=== PATIENT | female | born 1935 | race Caucasian/White ===

== ENCOUNTER → 2018-12-25 | Outpatient (CLI) | payer MEDICARE ==
[~2018-12-25] MED LIST: ASPI-1197 PO; BIOT10005 PO; CALC-877 PO; CHOL50004 PO; LEVO112T7 PO; MULT-1192 PO; PREG75 PO; RALO60TA13 PO; SIMV10TA6 PO
== END | disposition home or self-care (01) ==
LOC: RAH 12:30
PROVIDERS: ATTEND Family Medicine
DX: R07.81 Pleurodynia (principal)
CPT/HCPCS: 71100

== ENCOUNTER → 2019-06-27 | Outpatient (CLI) | payer MEDICARE ==
[~2019-06-27] MED LIST changes: -SIMV10TA6 PO; +SIMV10TA97 PO
== END | disposition home or self-care (01) ==
LOC: RAH 09:49
PROVIDERS: ATTEND Family Medicine
DX: R05 Cough (principal)
CPT/HCPCS: 71046

== ENCOUNTER → 2019-07-05 | Outpatient (CLI) | payer OTHER | END | disposition home or self-care (01) | LOC: RAH 09:44 | PROVIDERS: ATTEND Family Medicine | DX: Z13.6 Encounter for screening for cardiovascular disorders (principal) | CPT/HCPCS: 75571 ==

== ENCOUNTER → 2019-12-05 | Outpatient (CLI) | payer MEDICARE ==
[2019-12-05 12:10] LABS: BASOPHILS % (AUTO) 0.8 % (0.0-5.0); EOSINOPHILS % (AUTO) 1.7 % (0.0-8.0); HEMATOCRIT 44.1 % (36-48); MEAN CORPUSCULAR HGB CONC 32.2 g/dL (32.0-36.0); MONOCYTES % (AUTO) 9.2 % (3.0-13.0); NEUTROPHILS % (AUTO) 65.5 % (40.0-77.0); PLATELET COUNT (AUTO) 264 K/uL (130-400); RED CELL DISTRIBUTION WIDTH 13.4 % (11.0-15.5); WHITE BLOOD COUNT (AUTO) 6.6 K/uL (4.8-10.8)
[2019-12-05 12:38] LABS: ALBUMIN 3.6 g/dL (3.5-5.0); BILIRUBIN,TOTAL 0.5 mg/dL (0.2-1.0); CREATININE 0.8 mg/dL (0.5-1.5); POTASSIUM 4.3 mmol/L (3.5-5.1); THYROID STIMULATING HORMONE 4.39 uIU/mL (0.36-3.74); TOTAL PROTEIN, SERUM 8.1 g/dL (6.0-8.3); URIC ACID 3.5 mg/dL (2.6-7.2)
== END | disposition home or self-care (01) ==
LOC: LAB 10:55
PROVIDERS: ATTEND Internal Medicine Critical Care Medicine
DX: J47.9 Bronchiectasis, uncomplicated (principal); I63.9 Cerebral infarction, unspecified; E03.9 Hypothyroidism, unspecified; R53.83 Other fatigue; R79.9 Abnormal finding of blood chemistry, unspecified
CPT/HCPCS: 36415; 80053; 82728; 84443; 84550; 85025; 86038; 86200; 86215; 86235; 86431; 86618

== ENCOUNTER → 2019-12-17 | Outpatient (CLI) | payer MEDICARE | END | disposition home or self-care (01) | LOC: RAH 12:33 | PROVIDERS: ATTEND Family Medicine | DX: R59.0 Localized enlarged lymph nodes (principal) | CPT/HCPCS: 76882 ==

== ENCOUNTER → 2019-12-25 | Outpatient (CLI) | payer MEDICARE ==
[~2019-12-25] MED LIST changes: +GADODIAMIDE 10 MMOL/20 ML VIAL IV ONE
== END | disposition home or self-care (01) ==
LOC: RAH 10:39
PROVIDERS: ATTEND Internal Medicine Critical Care Medicine
DX: I67.82 Cerebral ischemia (principal); G31.89 Other specified degenerative diseases of nervous system; I63.9 Cerebral infarction, unspecified
CPT/HCPCS: 36415; 70553; A9579

== ENCOUNTER → 2021-05-20 | Outpatient (CLI) | payer MEDICARE ==
[~2021-05-20] MED LIST changes: -GADODIAMIDE 10 MMOL/20 ML VIAL IV ONE
== END | disposition home or self-care (01) ==
LOC: RAH 15:07
PROVIDERS: ATTEND Family Medicine
DX: M25.571 Pain in right ankle and joints of right foot (principal)
CPT/HCPCS: 73610

== ENCOUNTER → 2021-09-14 | Outpatient (CLI) | payer MEDICARE | END | disposition home or self-care (01) | LOC: RAH 14:33 | PROVIDERS: ATTEND Family Medicine | DX: M47.812 Spondylosis without myelopathy or radiculopathy, cervical region (principal); M48.02 Spinal stenosis, cervical region | CPT/HCPCS: 72040 ==

== ENCOUNTER → 2022-04-28 | Outpatient (CLI) | payer MEDICARE | END | disposition home or self-care (01) | LOC: RAH 13:45 | PROVIDERS: ATTEND Family Medicine | DX: I70.0 Atherosclerosis of aorta (principal); M47.815 Spondylosis without myelopathy or radiculopathy, thoracolumbar region; A31.0 Pulmonary mycobacterial infection | CPT/HCPCS: 71046 ==

== ENCOUNTER → 2022-11-30 | Outpatient (CLI) | payer MEDICARE | END | disposition home or self-care (01) | LOC: RAH 09:14 | PROVIDERS: ATTEND Internal Medicine Gastroenterology | DX: R13.10 Dysphagia, unspecified (principal) | CPT/HCPCS: 74240 ==

== ENCOUNTER → 2024-06-11 | Outpatient (CLI) | payer MEDICARE ==
--- NOTE | 2024-06-11 11:09 | HMCIMG ---
Exam Type: CHEST 2VWS Clinical Information: COUGH Comparison: None Findings: The lungs are hyperinflated consistent with COPD. There are clear of infiltrates and the heart is large in size. IMPRESSION: COPD.
== END | disposition home or self-care (01) ==
LOC: RAH 10:21
PROVIDERS: ATTEND Family Medicine
DX: J44.9 Chronic obstructive pulmonary disease, unspecified (principal); R05.9 Cough, unspecified
CPT/HCPCS: 71046

== ENCOUNTER → 2024-06-29 | Outpatient (CLI) | payer MEDICARE ==
[~2024-06-29] MED LIST changes: +IOHEXOL 350 MG/ML 100ML INFUS..BTL IV ONE
--- NOTE | 2024-06-29 14:14 | HMCIMG ---
CT CHEST W/WO CONTRAST HISTORY: COPD and COMPARISON: None TECHNIQUE: Multiple sequential axial images of the chest were obtained from the thoracic inlet through upper abdomen. Patient was given 100 cc of Omnipaque through intravenous route. FINDINGS: There are right middle lobe bronchiectasis. Coronary arterial calcifications are seen. COPD changes are seen. Calcified granuloma are seen in the right midlung posteriorly. There is no evidence of pulmonary nodule or parenchymal disease. No pleural effusion or pericardial effusion is seen. There is no evidence of pneumothorax. There are normal size mediastinal and hilar lymph nodes. The heart is not enlarged. Degenerative changes of the thoracolumbar spine are present. There is no evidence of adrenal nodule. There is mild dextroscoliosis. IMPRESSION: 1. No evidence of pulmonary nodule or effusion is seen. CT was performed with one or more following dose reduction techniques: automated exposure control, adjustment of the mA and kv according to patient's size, or use of a iterative reconstruction technique.
== END | disposition home or self-care (01) ==
LOC: RAH 12:12
PROVIDERS: ATTEND Family Medicine
DX: J44.9 Chronic obstructive pulmonary disease, unspecified (principal); I25.10 Atherosclerotic heart disease of native coronary artery without angina pectoris; M47.815 Spondylosis without myelopathy or radiculopathy, thoracolumbar region; M41.80 Other forms of scoliosis, site unspecified; R05.9 Cough, unspecified
CPT/HCPCS: 71270; Q9967

== ENCOUNTER → 2025-06-17 | Outpatient (CLI) | payer MEDICARE ==
[~2025-06-17] MED LIST changes: -IOHEXOL 350 MG/ML 100ML INFUS..BTL IV ONE
--- NOTE | 2025-06-17 23:53 | HMCIMG ---
EXAM: CR CHEST, 2 VIEWS CLINICAL HISTORY: COPD COMPARISON: Chest X ray dated June 11, 2024 TECHNIQUE: Frontal and lateral radiographs of the chest. FINDINGS: Lines/Devices: None. Lungs: The lungs appear hyperinflated. No focal consolidation is identified. No ground-glass opacities are observed. There is no pleural effusion. There is no pneumothorax. Mediastinum and cardiovascular structures: The cardiomediastinal silhouette is within normal limits. Bones and soft tissues: Degenerative changes are identified in the spine. IMPRESSION: 1. No evidence of acute cardiopulmonary abnormality. 2. Compared to chest X ray dated June 11, 2024, hyperinflated lungs, consistent with chronic obstructive pulmonary disease, appear unchanged since the prior examination. . /[place]
== END | disposition home or self-care (01) ==
LOC: RAH 14:22
PROVIDERS: ATTEND Family Medicine
DX: J44.9 Chronic obstructive pulmonary disease, unspecified (principal); M47.814 Spondylosis without myelopathy or radiculopathy, thoracic region
CPT/HCPCS: 71046